=== PATIENT | male | born 1950 | race Two or more races ===

== ENCOUNTER → 2024-08-01 | Outpatient (CLI) | payer MEDICARE, SELFPAY ==
[2024-08-01 11:45] LABS: Glucose Estimated Average 243 mg/dL (80-131); Hemoglobin A1C 10.1 % Hgb (4.8-6.0)
[2024-08-01 11:50] LABS: Alanine Aminotransferase 23 U/L (10-49); Albumin, Serum 4.7 gm/dL (3.4-4.8); Albumin/Globulin Ratio 2.1 (1.2-2.2); Alkaline Phosphatase 91 U/L (46-116); Anion Gap 9 (7-16); Aspartate Amino Transferase 20 U/L (0-34); BUN/Creatinine Ratio 13 Ratio (12-20); Bilirubin,Total 0.6 mg/dL (0.3-1.2); Blood Urea Nitrogen 12 mg/dL (9-23); Calcium 9.6 mg/dL (8.3-10.6); Calcium (Corrected) 9.6 mg/dL (8.5-10.1); Carbon Dioxide 25.1 mMol/L (20.0-31.0); Chloride 101 mMol/L (98-107); Creatinine (Component) 0.9 mg/dL (0.6-1.3); Globulin 2.2 gm/dL (2.3-3.5); Glucose 122 mg/dL (74-106); Osmolality,Calculated 270 (275-295); Potassium 3.8 mMol/L (3.4-5.1); Sodium 135 mMol/L (136-145); Total Protein 6.9 gm/dL (5.7-8.2); eGFR > 60 See Note
== END | disposition home or self-care (01) ==
PROVIDERS: PCP Family Medicine; Referring Provider Family Medicine; Visit Provider Family Medicine
DX: E11.65 Type 2 diabetes mellitus with hyperglycemia (principal)
CPT/HCPCS: 36415; 80053; 83036

== ENCOUNTER → 2024-11-14 | Outpatient (CLI) | payer MEDICARE, SELFPAY ==
--- NOTE | 2024-11-14 | XR_ITS ---
Examination: Left knee 4 views TECHNIQUE: AP oblique lateral axial left knee 4 views Exam date and time: November 14, 2024 1257 hours INDICATIONS: Left knee pain 15 years. FINDINGS: Advanced narrowing medial joint space Moderate to advanced osteoarthritis patellofemoral joint No fracture No patellar dislocation IMPRESSION: Moderate to advanced tricompartment osteoarthritis
[2024-11-14 13:50] LABS: Basophils # (Auto) 0.1 Thou/mm3 (0.0-0.2); Basophils % (Auto) 2 % (0-2.5); Eosinophils # (Auto) 0.2 Thou/mm3 (0.0-0.5); Eosinophils % (Auto) 2 % (0-10); Hematocrit 42.1 % (41.0-53.0); Hemoglobin 14.7 g/dL (13.5-16.0); Immature Granulocytes % (Auto) 0 % (0-0); Immature Granulocytes Auto 0.02 Thou/mm3 (0.00-0.00); Lymphocytes % (Auto) 29 % (10-50); Mean Corpuscular HGB Conc 34.9 g/dl (31.0-37.0); Mean Corpuscular Hemoglobin 29.8 pg (25.0-35.0); Mean Corpuscular Volume 85 fL (80-100); Monocytes # (Auto) 0.6 Thou/mm3 (0.0-0.8); Monocytes % (Auto) 8 % (0-12); Neutrophils % (Auto) 58 % (37-80); Nucleated Red Blood Cell % 0 /100 WBC (0); Platelet Count 235 Thou/mm3 (140-440); RDW Standard Deviation 38.4 fL (35.1-43.9); Red Blood Count 4.93 Miln/mm3 (4.50-5.90); White Blood Count 6.9 Thou/mm3 (3.8-10.6)
[2024-11-14 14:14] LABS: Alanine Aminotransferase 19 U/L (10-49); Albumin, Serum 3.9 gm/dL (3.4-4.8); Albumin/Globulin Ratio 1.6 (1.2-2.2); Alkaline Phosphatase 99 U/L (46-116); Anion Gap 10 (7-16); Aspartate Amino Transferase 14 U/L (0-34); BUN/Creatinine Ratio 16 Ratio (12-20); Bilirubin,Total 0.6 mg/dL (0.3-1.2); Blood Urea Nitrogen 14 mg/dL (9-23); Calcium 8.9 mg/dL (8.3-10.6); Cardiac Risk Estimate 5.6 RATIO (4.0-6.7); Chloride 102 mMol/L (98-107); Cholesterol 239 mg/dL (132-200); Creatinine (Component) 0.9 mg/dL (0.6-1.3); Globulin 2.4 gm/dL (2.3-3.5); Glucose 309 mg/dL (74-106); HDL Cholesterol 43 mg/dL (40-60); LDL Cholesterol,Calculated 136 mg/dL (0-130); Osmolality,Calculated 282 (275-295); Potassium 3.9 mMol/L (3.4-5.1); Sodium 135 mMol/L (136-145); Total Protein 6.3 gm/dL (5.7-8.2); Triglycerides 301 mg/dL (30-150); eGFR > 60 See Note
[2024-11-14 14:37] LABS: Glucose Estimated Average 355 mg/dL (80-131)
[2024-11-14 15:01] LABS: Creatinine MALB Rnd Ur 124 mg/dL (30-125); Microalbumin Creat Ratio 45 mg/gCrea (<30); Microalbumin, Random Urine 56 mg/L (0-300)
== END | disposition home or self-care (01) ==
PROVIDERS: PCP Internal Medicine; Referring Provider Internal Medicine; Visit Provider Internal Medicine
DX: M17.12 Unilateral primary osteoarthritis, left knee (principal); E11.65 Type 2 diabetes mellitus with hyperglycemia; I10 Essential (primary) hypertension
CPT/HCPCS: 36415; 73564; 80053; 80061; 82043; 82570; 83036; 84443; 85025

== ENCOUNTER → 2025-01-27 | Outpatient (CLI) | payer MEDICARE, SELFPAY | END | disposition home or self-care (01) | LOC: COPL 14:06 | PROVIDERS: PCP Internal Medicine; Referring Provider Internal Medicine; Visit Provider Internal Medicine | DX: N39.0 Urinary tract infection, site not specified (principal) | CPT/HCPCS: 87077; 87086; 87186 ==

== ENCOUNTER → 2025-02-06 | Outpatient (CLI) | payer MEDICARE, SELFPAY ==
[2025-02-06 15:56] LABS: Glucose Estimated Average 192 mg/dL (80-131); Hemoglobin A1C 8.3 % Hgb (4.8-6.0)
[2025-02-06 15:57] LABS: Alanine Aminotransferase 22 U/L (10-49); Albumin, Serum 4.5 gm/dL (3.4-4.8); Albumin/Globulin Ratio 1.8 (1.2-2.2); Alkaline Phosphatase 95 U/L (46-116); Anion Gap 11 (7-16); Aspartate Amino Transferase 24 U/L (0-34); BUN/Creatinine Ratio 13 Ratio (12-20); Bilirubin,Total 0.7 mg/dL (0.3-1.2); Blood Urea Nitrogen 12 mg/dL (9-23); Calcium 9.1 mg/dL (8.3-10.6); Calcium (Corrected) 9.1 mg/dL (8.5-10.1); Carbon Dioxide 23.5 mMol/L (20.0-31.0); Cardiac Risk Estimate 3.6 RATIO (4.0-6.7); Chloride 104 mMol/L (98-107); Cholesterol 174 mg/dL (132-200); Creatinine (Component) 0.9 mg/dL (0.6-1.3); Globulin 2.5 gm/dL (2.3-3.5); Glucose 120 mg/dL (74-106); HDL Cholesterol 49 mg/dL (40-60); LDL Cholesterol,Calculated 95 mg/dL (0-130); Osmolality,Calculated 276 (275-295); Potassium 4.2 mMol/L (3.4-5.1); Sodium 138 mMol/L (136-145); Triglycerides 151 mg/dL (30-150); eGFR > 60 See Note
[2025-02-06 16:01] LABS: Creatinine MALB Rnd Ur 28 mg/dL (30-125); Microalbumin Creat Ratio 54 mg/gCrea (<30); Microalbumin, Random Urine 15 mg/L (0-300)
[2025-02-06 16:28] LABS: Basophils # (Auto) 0.1 Thou/mm3 (0.0-0.2); Basophils % (Auto) 2 % (0-2.5); Eosinophils # (Auto) 0.2 Thou/mm3 (0.0-0.5); Eosinophils % (Auto) 2 % (0-10); Hematocrit 44.7 % (41.0-53.0); Hemoglobin 15.8 g/dL (13.5-16.0); Immature Granulocytes % (Auto) 0 % (0-0); Immature Granulocytes Auto 0.02 Thou/mm3 (0.00-0.00); Lymphocytes # (Auto) 2.5 Thou/mm3 (1.0-4.8); Lymphocytes % (Auto) 34 % (10-50); Mean Corpuscular HGB Conc 35.3 g/dl (31.0-37.0); Mean Corpuscular Hemoglobin 30.3 pg (25.0-35.0); Mean Corpuscular Volume 86 fL (80-100); Monocytes # (Auto) 0.7 Thou/mm3 (0.0-0.8); Monocytes % (Auto) 9 % (0-12); Neutrophils % (Auto) 53 % (37-80); Nucleated Red Blood Cell % 0 /100 WBC (0); Platelet Count 270 Thou/mm3 (140-440); RDW Standard Deviation 40.4 fL (35.1-43.9); Red Blood Count 5.22 Miln/mm3 (4.50-5.90); White Blood Count 7.5 Thou/mm3 (3.8-10.6)
== END | disposition home or self-care (01) ==
LOC: COPL 14:16
PROVIDERS: PCP Internal Medicine; Referring Provider Internal Medicine; Visit Provider Internal Medicine
DX: E11.65 Type 2 diabetes mellitus with hyperglycemia (principal); E78.00 Pure hypercholesterolemia, unspecified; I10 Essential (primary) hypertension
CPT/HCPCS: 36415; 80053; 80061; 82043; 82570; 83036; 85025

== ENCOUNTER → 2025-02-10 | Outpatient (CLI) | payer MEDICARE, SELFPAY ==
[2025-02-10 16:57] LABS: PSA Medicare Annual Scrn 2.69 ng/mL (0-4.00)
== END | disposition home or self-care (01) ==
PROVIDERS: PCP Internal Medicine; Referring Provider Internal Medicine; Visit Provider Internal Medicine
DX: Z00.01 Encounter for general adult medical examination with abnormal findings (principal); E11.65 Type 2 diabetes mellitus with hyperglycemia; E78.00 Pure hypercholesterolemia, unspecified; I10 Essential (primary) hypertension; G62.9 Polyneuropathy, unspecified; M19.90 Unspecified osteoarthritis, unspecified site
CPT/HCPCS: 36415; 84153; G0103

== ENCOUNTER 2025-03-17 13:48 | Outpatient (AMB) | payer MEDICARE, SELFPAY ==
--- NOTE | 2025-03-17 14:25 | PD.ORTHCLVIS ---
Vital signs 03/17/25 14:32 Height 1.7 m Height Method Stated Weight 117.14 kg Weight Measurement Method Standing Scale BMI 40.4 BP 131/75 H Blood Pressure Source Automatic Cuff Blood Pressure Location Left Upper Arm Position Sitting Respiration 18 Pulse 91 Pulse Source Monitor Temp 98.1 F Temp Source Temporal Artery Scan Pulse Oximetry (%) 94 L Oxygen Delivery Method Room Air Med/Allergies Allergies & Medications Allergies Penicillins Adverse Reaction (Severe, Verified 03/17/25 14:33) Vomiting Medication Reconciliation cimetidine 400 mg tablet 400 mg PO QDAY ##60 04/25/15 [History Confirmed 03/17/25] diclofenac sodium 50 mg tablet,delayed release 100 mg PO TIDWM ##0 07/01/17 [History Confirmed 03/17/25] gabapentin 300 mg capsule 300 mg PO BID #0 caps 07/01/17 [History Confirmed 03/17/25] insulin detemir U-100 100 unit/mL subcutaneous solution (Levemir U-100 Insulin) 60 unit subcut QPM #0 vials 07/01/17 [History Confirmed 03/17/25] rosuvastatin 10 mg tablet (Crestor) 10 mg PO HS #0 tabs 08/31/17 [History Confirmed 03/17/25] coenzyme Q10 100 mg capsule (CoQ-10) 300 mg PO DAILY ##0 09/01/17 [History Confirmed 03/17/25] glyburide 5 mg-metformin 500 mg tablet 1 tab PO DAILY 02/23/19 [History Confirmed 03/17/25] losartan 50 mg tablet 50 mg PO QDAY 02/23/19 [History Confirmed 03/17/25] magnesium 200 mg tablet 400 mg PO QDAY 02/23/19 [History Confirmed 03/17/25] meloxicam 15 mg tablet 15 mg PO QDAY 02/23/19 [History Confirmed 03/17/25] potassium gluconate 595 mg (99 mg) tablet 99 mg PO QDAY 02/23/19 [History Confirmed 03/17/25] Exam Exam Patient is in no acute distress and is cooperative with the examination today. Breathing is nonlabored. Patient has a normal mood and affect. Bilateral extremities were evaluated and demonstrates sensation intact to light touch. Palpable pedal pulses are present. No significant edema is present. Bilateral hips were examined. The patient has no pain with log roll of the hips. Internal rotation to 30 degrees and external rotation to 30 degrees is painless. Negative FADIR. Right knee was examined today. The right knee is in reasonable alignment. Range of motion from 0-120 degrees. Knee is stable to varus and valgus as well as AP translation with <5mm. Patient has a negative McMurrays. There is no pain with patellofemoral compression and no crepitus noted. The knee is nontender to palpation. Left knee was examined today. The left knee is in varus alignment. Range of motion from 0-115 degrees. Knee is stable to varus and valgus as well as AP translation with <5mm. Patient has a negative McMurrays. There is no pain with patellofemoral compression and no crepitus noted. The knee is tender to palpation medially. Xrays demonstrate significant joint space narrowing medially Assessment and Plan Problem List (1) Arthritis of knee: Status: Acute Plan: Patient is a pleasant 73-year-old male with left knee pain and left knee arthritis. We discussed different treatment options. The patient would like to proceed with surgery if he has [id number] which he has been told by 5 of the surgeons that he has [id number] arthritis. I will get weightbearing x-rays and we will go from there. We discussed total knee replacement in detail. Advanced Care Planning Discussion Advance care planning discussed with:: patient Office Procedures GNS Level of Care Nursing/Assessment Patient Status: Initial/New Patient Nursing Assessment/Reassesment: Medication Reconciliation, Update PMH in EMR and Vital Signs Coordination of Care: Complex Care and Chronic Disease 1-5, Education Complex Pt/Fam, Consent,records obtained, informed consent, 1 Ins Authorization, Lab and Imaging orders, Results/Orders obtained and Staff clarify orders New Patient Charge New Patient Point Assignment: 1124 New Patient Point Charge: DENTIST PR[facility] PRACTICE Level 4 (5732-1308) MA Intake Visit Data Collection New Patient or Established: New Patient (never been to [facility]) Reason for Visit:: LEFT KNEE PAIN Seen by Clinical Staff ONLY (RN/MA): No PCP or OBGYN visit in last 3 months: Yes Hx Now: No Do You Feel Safe at Home: Yes Authorities Contacted: N/A Questionairres Past Medical History Past Medical History Have you ever been diagnosed with any of the following: Neurological Problems Seizures: No Cardiology Problems Hypercholesterolemia: Yes Congestive Heart Failure: No Hypertension: Yes Respiratory Problems Chronic Obstructive Pulmonary Disease (COPD): No Smoking: Yes (5 CIGARS A MONTH) Stomache/Intestinal Problems Gastroesophageal Reflux Disease: Yes Genital/Urinary Problems Renal Disease: No Head,Eye,Nose,Throat Problems Cataracts: Yes Endocrine Problems Diabetes Mellitus Type 1: No Diabetes Mellitus Type 2: Yes Other Problems Blood Transfusions: No Blood Transfusion Reaction: No Anesthesia Reactions: No Organ Transplant: Yes Subjective Visit Visit for: new patient and knee Immunization / Flu Flu Vaccine in the Last 12 Months: Yes Flu Vaccine Exclusion Criteria: No Exclusion Criteria History of Present Illness Chief complaint: left knee pain Date of injury / onset of symptoms: 3 YEARS Date of 1st surgery (if applicable): 2019 R TKA Patient is a pleasant 71-year-old male with a left knee arthritis. He had a right total knee replacement done at [place] 5 years ago. He has had injections in the past as well as Advil. He uses a walker because of the pain. He reports the pain is starting to affect his quality life and happiness Personal History Occupation: RETIRED Pain Pain level (0-10): 9 Pain duration: ALL DAY Pain location: anterior Pain quality: aching and other (specify) (SWELLING) Pain timing: increases with activity Ambulatory data Ambulatory device: walker Treatments Improvement with previous injections: No Improvement with PT: No Improvement with NSAIDS: no Review of Systems Review of Systems: All systems negative unless otherwise noted in HPI.
[2025-03-17 14:32] VITALS: BP 131/75; PULSE 91; RESP 18; TEMP 36.7; O2SAT 94; BMI 40.4
--- NOTE | 2025-03-17 14:39 | XR_ITS ---
Examination: Bilateral knees 2 views Right lateral knee left lateral knee 2 views Bilateral axial knees single view TECHNIQUE: Bilateral AP knees standing single view, bilateral PA knees flexion single view Standing right lateral knee left lateral knee 2 views Bilateral axial knees single view Date and time: March 17, 2025 1456 hours INDICATIONS: Bilateral knee pain beginning 3 months ago FINDINGS: Total right knee arthroplasty. Satisfactory alignment. No loosening of the prosthetic components Advanced medial joint space left knee Significant osteoarthritis lateral and patellofemoral joints left knee IMPRESSION: Advanced left knee tricompartment arthritis
== END 2025-03-17 14:44 | disposition home or self-care (01) ==
LOC: HODSRG 13:48
PROVIDERS: PCP Internal Medicine; Referring Provider Internal Medicine; Supervising Provider Orthopaedic Surgery Adult Reconstructive Orthopaedic Surgery; Visit Provider Orthopaedic Surgery Adult Reconstructive Orthopaedic Surgery
DX: M17.12 Unilateral primary osteoarthritis, left knee (principal); I10 Essential (primary) hypertension; E78.00 Pure hypercholesterolemia, unspecified; K21.9 Gastro-esophageal reflux disease without esophagitis; E11.9 Type 2 diabetes mellitus without complications
CPT/HCPCS: 73564; 99204; G0463

== ENCOUNTER 2025-03-23 13:22 | Outpatient (AMB) | payer MEDICARE, SELFPAY ==
[2025-03-23 13:55] VITALS: BP 165/102; PULSE 94; RESP 19; TEMP 36.4; O2SAT 97; BMI 30.3
--- NOTE | 2025-03-23 13:55 | ORTHONT_ITS ---
Vital signs 03/23/25 13:55 Height 1.7 m Height Method Measured Weight 87.657 kg Weight Measurement Method Standing Scale BMI 30.3 BP 165/102 H Blood Pressure Source Automatic Cuff Blood Pressure Location Left Upper Arm Position Sitting Respiration 19 Pulse 94 Pulse Source Monitor Temp 97.6 F Temp Source Temporal Artery Scan Pulse Oximetry (%) 97 Oxygen Delivery Method Room Air Med/Allergies Allergies & Medications Allergies Penicillins Adverse Reaction (Severe, Verified 03/23/25 13:56) Vomiting Medication Reconciliation cimetidine 400 mg tablet 400 mg PO QDAY ##60 04/25/15 [History Confirmed 03/23/25] diclofenac sodium 50 mg tablet,delayed release 100 mg PO TIDWM ##0 07/01/17 [History Confirmed 03/23/25] gabapentin 300 mg capsule 300 mg PO BID #0 caps 07/01/17 [History Confirmed 03/23/25] insulin detemir U-100 100 unit/mL subcutaneous solution (Levemir U-100 Insulin) 60 unit subcut QPM #0 vials 07/01/17 [History Confirmed 03/23/25] rosuvastatin 10 mg tablet (Crestor) 10 mg PO HS #0 tabs 08/31/17 [History Confirmed 03/23/25] coenzyme Q10 100 mg capsule (CoQ-10) 300 mg PO DAILY ##0 09/01/17 [History Confirmed 03/23/25] glyburide 5 mg-metformin 500 mg tablet 1 tab PO DAILY 02/23/19 [History Confirmed 03/23/25] losartan 50 mg tablet 50 mg PO QDAY 02/23/19 [History Confirmed 03/23/25] magnesium 200 mg tablet 400 mg PO QDAY 02/23/19 [History Confirmed 03/23/25] meloxicam 15 mg tablet 15 mg PO QDAY 02/23/19 [History Confirmed 03/23/25] potassium gluconate 595 mg (99 mg) tablet 99 mg PO QDAY 02/23/19 [History Confirmed 03/23/25] Exam Exam Patient is in no acute distress and is cooperative with the examination today. Breathing is nonlabored. Patient has a normal mood and affect. Bilateral extremities were evaluated and demonstrates sensation intact to light touch. Palpable pedal pulses are present. No significant edema is present. Bilateral hips were examined. The patient has no pain with log roll of the hips. Internal rotation to 30 degrees and external rotation to 30 degrees is painless. Negative FADIR. Right knee was examined today. The right knee is in reasonable alignment. Range of motion from 0-120 degrees. Knee is stable to varus and valgus as well as AP translation with <5mm. Patient has a negative McMurrays. There is no pain with patellofemoral compression and no crepitus noted. The knee is nontender to palpation. Left knee was examined today. The left knee is in varus alignment. Range of motion from 0-115 degrees. Knee is stable to varus and valgus as well as AP translation with <5mm. Patient has a negative McMurrays. There is no pain with patellofemoral compression and no crepitus noted. The knee is tender to palpation medially. Xrays demonstrate significant joint space narrowing medially. There is complete obliteration of the medial joint space Assessment and Plan Problem List (1) Arthritis of knee: Status: Acute Plan: Patient is a pleasant 73-year-old male with left knee pain and left knee arthritis. We discussed different treatment options. The patient would like to proceed with surgery if he has [id number] which he has been told by 5 of the surgeons that he has [id number] arthritis. He has failed conservative treatment including anti-inflammatories and multiple injections. The nature and purpose of the total knee replacement, alternative method(s) of treatment, the material risks involved, and the possibility of complications were fully explained to the patient. The patient does NOT have any of the following contraindications to TKA: - Active infection of the knee joint, OR - Active systemic bacteremia, OR - Active skin infection or open wound at surgical site, OR - Neuropathic arthritis, OR - Severe, rapidly progressive neurological disease, OR - Severe medical condition that makes risks of surgery outweigh the potential benefit The patient was told the most common risks and complications associated with a total knee replacement include, but are not limited to: blood clots in the leg, fatal pulmonary embolism, dislocation of the prosthesis, intraoperative and postoperative fractures of the femur or tibia, infection, failure of the prosthesis or grafting materials, complications from anesthesia, reactions to blood transfusions, postoperative leg length inequality, instability of the knee replacement, nerve damage or injury, vascular injury, delayed wound healing, infection, other injury or even . In addition, there are risks associated with anesthesia given during this operation. Also, the patient was told that after undergoing a total knee replacement there may still be persistent pain or disability. The patient was informed that the success of this operation in part depends upon the mechanical devices which are going to be implanted and that these devices can fail or malfunction, and may need to be repaired or replaced and there are no guarantees as to the longevity of this device or its parts and that it or its parts could fail prematurely. The patient was also notified that during the course of surgery, there may be a need to use bone graft from donors, and that any bone graft used will be carefully screened for communicable diseases, including AIDS, hepatitis, Sarthak-Creutzfeldt, or other diseases, but despite the screening procedures, there is a small chance that they could contract one of these diseases. Finally, the patient was asked to follow completely and fully with all advice and recommended treatments, and that recovery and ultimate outcome are affected by their compliance with recommended treatment. We discussed the risks, benefits and treatment alternatives, and the patient is interested in proceeding with surgery. We will try to set this up as expeditiously as possible. Advanced Care Planning Discussion Advance care planning discussed with:: patient Office Procedures GNS Level of Care Nursing/Assessment Patient Status: Established Patient Nursing Assessment/Reassesment: Medication Reconciliation, Update PMH in EMR and Vital Signs Coordination of Care: Complex Care and Chronic Disease 1-5, Education Complex Pt/Fam, Consent,records obtained, informed consent, Results/Orders obtained and Staff clarify orders Special Needs: Language special needs Established Patient Charge Established Patient Point Assignment: 95 Established Patient Point Charge: EP Level 3 (80-115) MA Intake Visit Data Collection New Patient or Established: Established Patient (seen at [facility] within 3 years) Reason for Visit:: XRAY HIP Seen by Clinical Staff ONLY (RN/MA): No Enrolled Nurse Required: Yes PCP or OBGYN visit in last 3 months: Yes Hx Now: No Do You Feel Safe at Home: Yes Authorities Contacted: N/A Questionairres Past Medical History Past Medical History Have you ever been diagnosed with any of the following: Neurological Problems Seizures: No Cardiology Problems Hypercholesterolemia: Yes Congestive Heart Failure: No Hypertension: Yes Respiratory Problems Chronic Obstructive Pulmonary Disease (COPD): No Smoking: Yes (5 CIGARS A MONTH) Stomache/Intestinal Problems Gastroesophageal Reflux Disease: Yes Genital/Urinary Problems Renal Disease: No Head,Eye,Nose,Throat Problems Cataracts: Yes Endocrine Problems Diabetes Mellitus Type 1: No Diabetes Mellitus Type 2: Yes Other Problems Blood Transfusions: No Blood Transfusion Reaction: No Anesthesia Reactions: No Organ Transplant: Yes Subjective Visit Visit for: follow up visit and hip Immunization / Flu Flu Vaccine in the Last 12 Months: No Flu Vaccine Exclusion Criteria: No Exclusion Criteria History of Present Illness Chief complaint: XRAY HIP Date of injury / onset of symptoms: 3 YEARS Date of 1st surgery (if applicable): 2019 R TKA Patient is a pleasant 71-year-old male with a left knee arthritis. He had a right total knee replacement done at [place] 5 years ago. He has had injections in the past as well as Advil. He uses a walker because of the pain. He reports the pain is starting to affect his quality life and happiness Personal History Occupation: RETIRED Red flag PMH: none BMI Counceling provided: Yes Pain Pain level (0-10): 8 Pain duration: ALL DAY Pain location: groin, anterior and posterior Pain quality: sharp, dull and aching Pain timing: night, increases with activity and stairs Ambulatory data Ambulatory device: none Treatments Improvement with previous injections: No Improvement with PT: No Improvement with NSAIDS: no Review of Systems Review of Systems: All systems negative unless otherwise noted in HPI.
== END 2025-03-23 14:09 | disposition home or self-care (01) ==
LOC: HODSRG 13:22
PROVIDERS: PCP Internal Medicine; Referring Provider Internal Medicine; Supervising Provider Orthopaedic Surgery Adult Reconstructive Orthopaedic Surgery; Visit Provider Orthopaedic Surgery Adult Reconstructive Orthopaedic Surgery
DX: M17.12 Unilateral primary osteoarthritis, left knee (principal); M25.562 Pain in left knee; I10 Essential (primary) hypertension; E78.00 Pure hypercholesterolemia, unspecified; K21.9 Gastro-esophageal reflux disease without esophagitis; E11.9 Type 2 diabetes mellitus without complications
CPT/HCPCS: 99213; G0463

== ENCOUNTER → 2025-04-12 | Outpatient (CLI) | payer MEDICARE, SELFPAY ==
--- NOTE | 2025-04-12 12:00 | XR_ITS ---
Examination: CT left lower extremity, without contrast. 2-D sagittal reconstructions. 2-D coronal reconstructions. 3-D reconstructions. Date and time of exam:April 12, 2025 1221 hours INDICATIONS: Diagnosis unilateral left knee primary osteoarthritis for years, left knee pain for years CTDI: vol (mGy):13.4 DLP: (mGycm):1086 Technique: Multiple 1.25 mm axial sections of the left lower extremity without intravenous contrast have been obtained. 2-D sagittal and coronal reconstructions have been obtained. 3-D reconstructions have been obtained. Low dose protocols were performed. One or more of the following dose reduction techniques were used; automated exposure control, adjustment of the mA and/or KV according to patient size, use of iterative reconstruction technique. Findings: Significant osteopenia Moderate narrowing left hip joint No left hip fracture or dislocation No avascular necrosis Left knee advanced tricompartment osteoarthritis Severe narrowing medial joint space with 7 mm osteochondral defect in the medial femoral condyle No acute fracture No patellar dislocation IMPRESSION: Advanced left knee tricompartment osteoarthritis
== END | disposition home or self-care (01) ==
LOC: CCTX 11:56
PROVIDERS: PCP Internal Medicine; Referring Provider Orthopaedic Surgery Adult Reconstructive Orthopaedic Surgery; Visit Provider Orthopaedic Surgery Adult Reconstructive Orthopaedic Surgery
DX: M17.12 Unilateral primary osteoarthritis, left knee (principal)
CPT/HCPCS: 73700

== ENCOUNTER → 2025-05-17 | Outpatient (CLI) | payer MEDICARE, SELFPAY ==
[2025-05-17 16:49] LABS: Basophils # (Auto) 0.1 Thou/mm3 (0.0-0.2); Basophils % (Auto) 1 % (0-2.5); Eosinophils # (Auto) 0.4 Thou/mm3 (0.0-0.5); Eosinophils % (Auto) 4 % (0-10); Hematocrit 43.8 % (41.0-53.0); Hemoglobin 15.1 g/dL (13.5-16.0); Immature Granulocytes Auto 0.02 Thou/mm3 (0.00-0.00); Lymphocytes # (Auto) 2.5 Thou/mm3 (1.0-4.8); Lymphocytes % (Auto) 28 % (10-50); Mean Corpuscular HGB Conc 34.5 g/dl (31.0-37.0); Mean Corpuscular Hemoglobin 30.3 pg (25.0-35.0); Mean Corpuscular Volume 88 fL (80-100); Monocytes # (Auto) 0.7 Thou/mm3 (0.0-0.8); Monocytes % (Auto) 8 % (0-12); Neutrophils # (Auto) 5.2 Thou/mm3 (1.8-7.7); Neutrophils % (Auto) 58 % (37-80); Nucleated Red Blood Cell # 0.00 Thou/mm3 (0.00-0.00); Nucleated Red Blood Cell % 0 /100 WBC (0); Platelet Count 243 Thou/mm3 (140-440); RDW Standard Deviation 41.3 fL (35.1-43.9); Red Blood Count 4.98 Miln/mm3 (4.50-5.90); White Blood Count 8.9 Thou/mm3 (3.8-10.6)
[2025-05-17 16:57] LABS: Glucose Estimated Average 200 mg/dL (80-131); Hemoglobin A1C 8.6 % Hgb (4.8-6.0)
[2025-05-17 17:01] LABS: Alanine Aminotransferase 39 U/L (10-49); Albumin, Serum 4.2 gm/dL (3.4-4.8); Albumin/Globulin Ratio 1.8 (1.2-2.2); Alkaline Phosphatase 92 U/L (46-116); Anion Gap 11 (7-16); Aspartate Amino Transferase 31 U/L (0-34); BUN/Creatinine Ratio 10 Ratio (12-20); Bilirubin,Total 0.5 mg/dL (0.3-1.2); Blood Urea Nitrogen 10 mg/dL (9-23); Calcium 8.7 mg/dL (8.3-10.6); Calcium (Corrected) 8.7 mg/dL (8.5-10.1); Carbon Dioxide 22.7 mMol/L (20.0-31.0); Chloride 106 mMol/L (98-107); Creatinine (Component) 1.0 mg/dL (0.6-1.3); Globulin 2.3 gm/dL (2.3-3.5); Glucose 280 mg/dL (74-106); Osmolality,Calculated 288 (275-295); Potassium 3.9 mMol/L (3.4-5.1); Sodium 140 mMol/L (136-145); Total Protein 6.5 gm/dL (5.7-8.2); eGFR > 60 See Note
[2025-05-17 17:11] LABS: INR 1.0 (0.9-1.3); Partial Thromboplastin Time 28.7 Seconds (22.0-36.0); Prothrombin Time 10.9 Seconds (9.0-12.2)
== END | disposition home or self-care (01) ==
LOC: COPL 14:37
PROVIDERS: PCP Nurse Practitioner Family; Referring Provider Nurse Practitioner Family; Visit Provider Nurse Practitioner Family
DX: Z01.818 Encounter for other preprocedural examination (principal); I10 Essential (primary) hypertension; E11.65 Type 2 diabetes mellitus with hyperglycemia
CPT/HCPCS: 36415; 80053; 83036; 85025; 85610; 85730

== ENCOUNTER 2025-05-24 13:44 | Outpatient (AMB) | payer MEDICARE, SELFPAY ==
[2025-05-24 13:50] VITALS: BP 139/69; PULSE 80; RESP 18; TEMP 36.8; O2SAT 96; BMI 41.0
--- NOTE | 2025-05-24 13:50 | PD.ORTHCLVIS ---
Vital signs 05/24/25 13:50 Height 1.7 m Height Method Measured Weight 118.501 kg Weight Measurement Method Standing Scale BMI 41.0 BP 139/69 H Blood Pressure Source Automatic Cuff Blood Pressure Location Left Upper Arm Position Sitting Respiration 18 Pulse 80 Pulse Source Monitor Temp 98.3 F Temp Source Temporal Artery Scan Pulse Oximetry (%) 96 Oxygen Delivery Method Room Air Med/Allergies Allergies & Medications Allergies Penicillins Adverse Reaction (Severe, Verified 05/24/25 13:51) Vomiting Medication Reconciliation cimetidine 400 mg tablet 400 mg PO QDAY ##60 04/25/15 [History Confirmed 05/24/25] diclofenac sodium 50 mg tablet,delayed release 100 mg PO TIDWM ##0 07/01/17 [History Confirmed 05/24/25] gabapentin 300 mg capsule 300 mg PO BID #0 caps 07/01/17 [History Confirmed 05/24/25] insulin detemir U-100 100 unit/mL subcutaneous solution (Levemir U-100 Insulin) 60 unit subcut QPM #0 vials 07/01/17 [History Confirmed 05/24/25] rosuvastatin 10 mg tablet (Crestor) 10 mg PO HS #0 tabs 08/31/17 [History Confirmed 05/24/25] coenzyme Q10 100 mg capsule (CoQ-10) 300 mg PO DAILY ##0 09/01/17 [History Confirmed 05/24/25] glyburide 5 mg-metformin 500 mg tablet 1 tab PO DAILY 02/23/19 [History Confirmed 05/24/25] losartan 50 mg tablet 50 mg PO QDAY 02/23/19 [History Confirmed 05/24/25] magnesium 200 mg tablet 400 mg PO QDAY 02/23/19 [History Confirmed 05/24/25] meloxicam 15 mg tablet 15 mg PO QDAY 02/23/19 [History Confirmed 05/24/25] potassium gluconate 595 mg (99 mg) tablet 99 mg PO QDAY 02/23/19 [History Confirmed 05/24/25] Exam Exam Patient is in no acute distress and is cooperative with the examination today. Breathing is nonlabored. Patient has a normal mood and affect. Bilateral extremities were evaluated and demonstrates sensation intact to light touch. Palpable pedal pulses are present. No significant edema is present. Bilateral hips were examined. The patient has no pain with log roll of the hips. Internal rotation to 30 degrees and external rotation to 30 degrees is painless. Negative FADIR. Right knee was examined today. The right knee is in reasonable alignment. Range of motion from 0-120 degrees. Knee is stable to varus and valgus as well as AP translation with <5mm. Patient has a negative McMurrays. There is no pain with patellofemoral compression and no crepitus noted. The knee is nontender to palpation. Left knee was examined today. The left knee is in varus alignment. Range of motion from 0-115 degrees. Knee is stable to varus and valgus as well as AP translation with <5mm. Patient has a negative McMurrays. There is no pain with patellofemoral compression and no crepitus noted. The knee is tender to palpation medially. Xrays demonstrate significant joint space narrowing medially. There is complete obliteration of the medial joint space Assessment and Plan Problem List (1) Arthritis of knee: Status: Acute Plan: Patient is a pleasant 73-year-old male with left knee pain and left knee arthritis. We discussed different treatment options. The patient would like to proceed with surgery if he has [id number] which he has been told by 5 of the surgeons that he has [id number] arthritis. He has failed conservative treatment including anti-inflammatories and multiple injections. In addition, he has bilateral leg numbness and tingling that starts around the buttocks and goes down both legs. He almost for sure of spinal stenosis. I will order an MRI The nature and purpose of the total knee replacement, alternative method(s) of treatment, the material risks involved, and the possibility of complications were fully explained to the patient. The patient does NOT have any of the following contraindications to TKA: - Active infection of the knee joint, OR - Active systemic bacteremia, OR - Active skin infection or open wound at surgical site, OR - Neuropathic arthritis, OR - Severe, rapidly progressive neurological disease, OR - Severe medical condition that makes risks of surgery outweigh the potential benefit The patient was told the most common risks and complications associated with a total knee replacement include, but are not limited to: blood clots in the leg, fatal pulmonary embolism, dislocation of the prosthesis, intraoperative and postoperative fractures of the femur or tibia, infection, failure of the prosthesis or grafting materials, complications from anesthesia, reactions to blood transfusions, postoperative leg length inequality, instability of the knee replacement, nerve damage or injury, vascular injury, delayed wound healing, infection, other injury or even . In addition, there are risks associated with anesthesia given during this operation. Also, the patient was told that after undergoing a total knee replacement there may still be persistent pain or disability. The patient was informed that the success of this operation in part depends upon the mechanical devices which are going to be implanted and that these devices can fail or malfunction, and may need to be repaired or replaced and there are no guarantees as to the longevity of this device or its parts and that it or its parts could fail prematurely. The patient was also notified that during the course of surgery, there may be a need to use bone graft from donors, and that any bone graft used will be carefully screened for communicable diseases, including AIDS, hepatitis, Sarthak-Creutzfeldt, or other diseases, but despite the screening procedures, there is a small chance that they could contract one of these diseases. Finally, the patient was asked to follow completely and fully with all advice and recommended treatments, and that recovery and ultimate outcome are affected by their compliance with recommended treatment. We discussed the risks, benefits and treatment alternatives, and the patient is interested in proceeding with surgery. We will try to set this up as expeditiously as possible. Advanced Care Planning Discussion Advance care planning discussed with:: patient Office Procedures GNS Level of Care Nursing/Assessment Patient Status: Established Patient Nursing Assessment/Reassesment: Medication Reconciliation, Update PMH in EMR and Vital Signs Coordination of Care: Complex Care and Chronic Disease 1-5, Education Complex Pt/Fam, Consent,records obtained, informed consent, Results/Orders obtained and Staff clarify orders Established Patient Charge Established Patient Point Assignment: 95 Established Patient Point Charge: Level 3 (80-115) MA Intake Visit Data Collection New Patient or Established: Established Patient (seen at [facility] within 3 years) Reason for Visit:: LEFT KNEE PAIN Seen by Clinical Staff ONLY (RN/MA): No Electrical Plumbing Supervisor Required: Yes PCP or OBGYN visit in last 3 months: Yes Hx Now: No Do You Feel Safe at Home: Yes Authorities Contacted: N/A Questionairres Past Medical History Past Medical History Have you ever been diagnosed with any of the following: Neurological Problems Seizures: No Cardiology Problems Hypercholesterolemia: Yes Congestive Heart Failure: No Hypertension: Yes Respiratory Problems Chronic Obstructive Pulmonary Disease (COPD): No Smoking: Yes (5 CIGARS A MONTH) Stomache/Intestinal Problems Gastroesophageal Reflux Disease: Yes Genital/Urinary Problems Renal Disease: No Head,Eye,Nose,Throat Problems Cataracts: Yes Endocrine Problems Diabetes Mellitus Type 1: No Diabetes Mellitus Type 2: Yes Other Problems Blood Transfusions: No Blood Transfusion Reaction: No Anesthesia Reactions: No Organ Transplant: Yes Subjective Visit Visit for: follow up visit and knee Immunization / Flu Flu Vaccine in the Last 12 Months: No Flu Vaccine Exclusion Criteria: No Exclusion Criteria History of Present Illness Chief complaint: LEFT KNEE PAIN Date of injury / onset of symptoms: 3 YEARS Date of 1st surgery (if applicable): 2019 R TKA Patient is a pleasant 71-year-old male with a left knee arthritis. He had a right total knee replacement done at [place] 5 years ago. He has had injections in the past as well as Advil. He uses a walker because of the pain. He reports the pain is starting to affect his quality life and happiness He also reports that he has pain shooting down both legs. Uses a walker and leans forward. He has a positive shopping cart sign Personal History Occupation: RETIRED Red flag PMH: none BMI Counceling provided: Yes Pain Pain level (0-10): 8 Pain duration: ALL DAY Pain location: groin, anterior and posterior Pain quality: sharp, dull and aching Pain timing: night, increases with activity and stairs Ambulatory data Ambulatory device: none Treatments Improvement with previous injections: No Improvement with PT: No Improvement with NSAIDS: no Review of Systems Review of Systems: All systems negative unless otherwise noted in HPI.
== END 2025-05-24 14:09 | disposition home or self-care (01) ==
LOC: HODSRG 13:44
PROVIDERS: PCP Nurse Practitioner Family; Referring Provider Nurse Practitioner Family; Supervising Provider Orthopaedic Surgery Adult Reconstructive Orthopaedic Surgery; Visit Provider Orthopaedic Surgery Adult Reconstructive Orthopaedic Surgery
DX: M17.12 Unilateral primary osteoarthritis, left knee (principal); M25.562 Pain in left knee; R20.0 Anesthesia of skin; R20.2 Paresthesia of skin; M79.605 Pain in left leg; M79.604 Pain in right leg; I10 Essential (primary) hypertension; E78.00 Pure hypercholesterolemia, unspecified; K21.9 Gastro-esophageal reflux disease without esophagitis; E11.9 Type 2 diabetes mellitus without complications; Z96.651 Presence of right artificial knee joint; F17.210 Nicotine dependence, cigarettes, uncomplicated
CPT/HCPCS: 99213; G0463

== ENCOUNTER → 2025-06-23 | Outpatient (CLI) | payer MEDICARE, SELFPAY ==
--- NOTE | 2025-06-23 12:00 | XR_ITS ---
Examination: MRI lumbar spine without contrast Date and time of exam: June 23, 2025, 1215 hours INDICATIONS: Low back pain radiating down the left leg to the heel 3 months Technique: Multiple MRI axial and sagittal sections lumbar spine. Sagittal T2-weighted images, TR 3500, TE 118 T1 weighted transverse sections, TR 688 T8.5, T2-weighted sagittal sections T1 weighted sagittal sections TR 621, TE 30 T2 axial sections, TR 4, 190, TE 84. Findings: Grade 2 spondylolisthesis L5 on S1 Diffuse advanced lumbar degenerative disc disease Moderate lumbar spondylosis L5-S1 severe spinal stenosis, secondary to the grade 2 spondylolisthesis and 13 mm central lumbar disc bulge circumferentially surrounding the thecal sac with severe bilateral L5 ganglionic compression L4-L5 2 mm central lumbar disc bulge L3-4 2 mm central lumbar disc bulge L2-3 no disc protrusion L1-L2 no disc protrusion IMPRESSION: Diffuse advanced lumbar degenerative disc disease L5-S1 severe spinal stenosis, grade 2 spondylolisthesis, 13 mm central lumbar disc bulge with severe bilateral L5 ganglionic compression
== END | disposition home or self-care (01) ==
LOC: SMRI 11:48
PROVIDERS: PCP Internal Medicine; Referring Provider Orthopaedic Surgery Adult Reconstructive Orthopaedic Surgery; Visit Provider Orthopaedic Surgery Adult Reconstructive Orthopaedic Surgery
DX: M51.360 Other intervertebral disc degeneration, lumbar region with discogenic back pain only (principal); M48.07 Spinal stenosis, lumbosacral region; M43.17 Spondylolisthesis, lumbosacral region; G95.20 Unspecified cord compression
CPT/HCPCS: 72148

== ENCOUNTER 2025-07-13 10:26 | Outpatient (AMB) | payer MEDICARE, SELFPAY ==
--- NOTE | 2025-07-13 09:52 | PD.ORTHTELE ---
Med/Allergies Allergies & Medications Allergies Penicillins Adverse Reaction (Severe, Verified 07/13/25 09:55) Vomiting Medication Reconciliation cimetidine 400 mg tablet 400 mg PO QDAY ##60 04/25/15 [History Confirmed 07/13/25] diclofenac sodium 50 mg tablet,delayed release 100 mg PO TIDWM ##0 07/01/17 [History Confirmed 07/13/25] gabapentin 300 mg capsule 300 mg PO BID #0 caps 07/01/17 [History Confirmed 07/13/25] insulin detemir U-100 100 unit/mL subcutaneous solution (Levemir U-100 Insulin) 60 unit subcut QPM #0 vials 07/01/17 [History Confirmed 07/13/25] rosuvastatin 10 mg tablet (Crestor) 10 mg PO HS #0 tabs 08/31/17 [History Confirmed 07/13/25] coenzyme Q10 100 mg capsule (CoQ-10) 300 mg PO DAILY ##0 09/01/17 [History Confirmed 07/13/25] glyburide 5 mg-metformin 500 mg tablet 1 tab PO DAILY 02/23/19 [History Confirmed 07/13/25] losartan 50 mg tablet 50 mg PO QDAY 02/23/19 [History Confirmed 07/13/25] magnesium 200 mg tablet 400 mg PO QDAY 02/23/19 [History Confirmed 07/13/25] meloxicam 15 mg tablet 15 mg PO QDAY 02/23/19 [History Confirmed 07/13/25] potassium gluconate 595 mg (99 mg) tablet 99 mg PO QDAY 02/23/19 [History Confirmed 07/13/25] Subjective Visit Visit for: follow up visit, knee and MRI (RESULTS) Immunization / Flu Flu Vaccine in the Last 12 Months: Yes Flu Vaccine Exclusion Criteria: Already Received History of Present Illness Chief complaint: MRI RESULTS atlynda is a pleasant 71-year-old male with a left knee arthritis. He had a right total knee replacement done at [place] 5 years ago. He has had injections in the past as well as Advil. He uses a walker because of the pain. He reports the pain is starting to affect his quality life and happiness He also reports that he has pain shooting down both legs. Uses a walker and leans forward. He has a positive shopping cart sign Pain Pain level (0-10): 8 Pain duration: ALL DAY Pain location: anterior Pain quality: dull and aching Pain timing: increases with activity Associated signs & symptoms: none Ambulatory data Ambulatory device: none Treatments Improvement with previous injections: No Improvement with PT: No Improvement with NSAIDS: no Review of Systems Review of Systems: All systems negative unless otherwise noted in HPI. Assessment and Plan Problem List (1) Arthritis of knee: Status: Acute Plan: Patient is a pleasant 73-year-old male with left knee pain and left knee arthritis. We discussed different treatment options. The patient would like to proceed with surgery if he has [id number] which he has been told by 5 of the surgeons that he has [id number] arthritis. He has failed conservative treatment including anti-inflammatories and multiple injections. In addition, he has bilateral leg numbness and tingling that starts around the buttocks and goes down both legs. He almost for sure of spinal stenosis. We discussed his MRI results. He has significant spinal stenosis at L5-S1 The nature and purpose of the total knee replacement, alternative method(s) of treatment, the material risks involved, and the possibility of complications were fully explained to the patient. The patient does NOT have any of the following contraindications to TKA: - Active infection of the knee joint, OR - Active systemic bacteremia, OR - Active skin infection or open wound at surgical site, OR - Neuropathic arthritis, OR - Severe, rapidly progressive neurological disease, OR - Severe medical condition that makes risks of surgery outweigh the potential benefit The patient was told the most common risks and complications associated with a total knee replacement include, but are not limited to: blood clots in the leg, fatal pulmonary embolism, dislocation of the prosthesis, intraoperative and postoperative fractures of the femur or tibia, infection, failure of the prosthesis or grafting materials, complications from anesthesia, reactions to blood transfusions, postoperative leg length inequality, instability of the knee replacement, nerve damage or injury, vascular injury, delayed wound healing, infection, other injury or even . In addition, there are risks associated with anesthesia given during this operation. Also, the patient was told that after undergoing a total knee replacement there may still be persistent pain or disability. The patient was informed that the success of this operation in part depends upon the mechanical devices which are going to be implanted and that these devices can fail or malfunction, and may need to be repaired or replaced and there are no guarantees as to the longevity of this device or its parts and that it or its parts could fail prematurely. The patient was also notified that during the course of surgery, there may be a need to use bone graft from donors, and that any bone graft used will be carefully screened for communicable diseases, including AIDS, hepatitis, Sarthak-Creutzfeldt, or other diseases, but despite the screening procedures, there is a small chance that they could contract one of these diseases. Finally, the patient was asked to follow completely and fully with all advice and recommended treatments, and that recovery and ultimate outcome are affected by their compliance with recommended treatment. We discussed the risks, benefits and treatment alternatives, and the patient is interested in proceeding with surgery. We will try to set this up as expeditiously as possible. Advanced Care Planning Discussion Advance care planning discussed with:: patient Office Procedures GNS Level of Care Nursing/Assessment Patient Status: Established Patient Nursing Assessment/Reassesment: Medication Reconciliation, Update PMH in EMR and Vital Signs Coordination of Care: Complex Care and Chronic Disease 1-5, Education Complex Pt/Fam, Consent,records obtained, informed consent, Results/Orders obtained and Staff clarify orders Established Patient Charge Established Patient Point Assignment: 95 Telehealth If patient is seen using Teleconference methods, complete New/Est section, but DO NOT andres points only andres the correct Telemed visit type Telemed Phone/Video with patient at home & Dr,PA,ASPHALT MACHINE OPERATOR: Yes
== END 2025-07-13 10:28 | disposition home or self-care (01) ==
LOC: HODSRG 10:26
PROVIDERS: PCP Internal Medicine; Referring Provider Internal Medicine; Supervising Provider Orthopaedic Surgery Adult Reconstructive Orthopaedic Surgery; Visit Provider Orthopaedic Surgery Adult Reconstructive Orthopaedic Surgery
DX: M17.12 Unilateral primary osteoarthritis, left knee (principal); M25.562 Pain in left knee; Z96.651 Presence of right artificial knee joint; M48.07 Spinal stenosis, lumbosacral region
CPT/HCPCS: 99212; G0463

== ENCOUNTER 2025-07-27 13:31 | Outpatient (AMB) | payer MEDICARE, SELFPAY ==
[2025-07-27 14:30] VITALS: BP 137/85; PULSE 92; RESP 18; TEMP 36.3; O2SAT 97; BMI 40.8
--- NOTE | 2025-07-27 14:30 | PD.ORTHCLVIS ---
Vital signs 07/27/25 14:30 Height 1.7 m Height Method Stated Weight 118.047 kg Weight Measurement Method Standing Scale BMI 40.8 BP 137/85 H Blood Pressure Source Automatic Cuff Blood Pressure Location Right Upper Arm Position Sitting Respiration 18 Pulse 92 Pulse Source Monitor Temp 97.3 F Temp Source Temporal Artery Scan Pulse Oximetry (%) 97 Oxygen Delivery Method Room Air Med/Allergies Allergies & Medications Allergies Penicillins Adverse Reaction (Severe, Verified 07/27/25 14:30) Vomiting Medication Reconciliation cimetidine 400 mg tablet 400 mg PO QDAY ##60 04/25/15 [History Confirmed 07/27/25] diclofenac sodium 50 mg tablet,delayed release 100 mg PO TIDWM ##0 07/01/17 [History Confirmed 07/27/25] gabapentin 300 mg capsule 300 mg PO BID #0 caps 07/01/17 [History Confirmed 07/27/25] insulin detemir U-100 100 unit/mL subcutaneous solution (Levemir U-100 Insulin) 60 unit subcut QPM #0 vials 07/01/17 [History Confirmed 07/27/25] rosuvastatin 10 mg tablet (Crestor) 10 mg PO HS #0 tabs 08/31/17 [History Confirmed 07/27/25] coenzyme Q10 100 mg capsule (CoQ-10) 300 mg PO DAILY ##0 09/01/17 [History Confirmed 07/27/25] glyburide 5 mg-metformin 500 mg tablet 1 tab PO DAILY 02/23/19 [History Confirmed 07/27/25] losartan 50 mg tablet 50 mg PO QDAY 02/23/19 [History Confirmed 07/27/25] magnesium 200 mg tablet 400 mg PO QDAY 02/23/19 [History Confirmed 07/27/25] meloxicam 15 mg tablet 15 mg PO QDAY 02/23/19 [History Confirmed 07/27/25] potassium gluconate 595 mg (99 mg) tablet 99 mg PO QDAY 02/23/19 [History Confirmed 07/27/25] Exam Exam Patient is in no acute distress and is cooperative with the examination today. Breathing is nonlabored. Patient has a normal mood and affect. Bilateral extremities were evaluated and demonstrates sensation intact to light touch. Palpable pedal pulses are present. No significant edema is present. Bilateral hips were examined. The patient has no pain with log roll of the hips. Internal rotation to 30 degrees and external rotation to 30 degrees is painless. Negative FADIR. Right knee was examined today. The right knee is in reasonable alignment. Range of motion from 0-120 degrees. Knee is stable to varus and valgus as well as AP translation with <5mm. Patient has a negative McMurrays. There is no pain with patellofemoral compression and no crepitus noted. The knee is nontender to palpation. Left knee was examined today. The left knee is in varus alignment. Range of motion from 0-115 degrees. Knee is stable to varus and valgus as well as AP translation with <5mm. Patient has a negative McMurrays. There is no pain with patellofemoral compression and no crepitus noted. The knee is tender to palpation medially. Xrays demonstrate significant joint space narrowing medially. There is complete obliteration of the medial joint space Assessment and Plan Problem List (1) Arthritis of knee: Status: Acute Plan: Patient is a pleasant 73-year-old male with left knee pain and left knee arthritis. We discussed different treatment options. The patient would like to proceed with surgery if he has [id number] which he has been told by 5 of the surgeons that he has [id number] arthritis. He has failed conservative treatment including anti-inflammatories and multiple injections. In addition, he has bilateral leg numbness and tingling that starts around the buttocks and goes down both legs. He almost for sure of spinal stenosis. We discussed his MRI results. He has significant spinal stenosis at L5-S1 The nature and purpose of the total knee replacement, alternative method(s) of treatment, the material risks involved, and the possibility of complications were fully explained to the patient. The patient does NOT have any of the following contraindications to TKA: - Active infection of the knee joint, OR - Active systemic bacteremia, OR - Active skin infection or open wound at surgical site, OR - Neuropathic arthritis, OR - Severe, rapidly progressive neurological disease, OR - Severe medical condition that makes risks of surgery outweigh the potential benefit The patient was told the most common risks and complications associated with a total knee replacement include, but are not limited to: blood clots in the leg, fatal pulmonary embolism, dislocation of the prosthesis, intraoperative and postoperative fractures of the femur or tibia, infection, failure of the prosthesis or grafting materials, complications from anesthesia, reactions to blood transfusions, postoperative leg length inequality, instability of the knee replacement, nerve damage or injury, vascular injury, delayed wound healing, infection, other injury or even . In addition, there are risks associated with anesthesia given during this operation. Also, the patient was told that after undergoing a total knee replacement there may still be persistent pain or disability. The patient was informed that the success of this operation in part depends upon the mechanical devices which are going to be implanted and that these devices can fail or malfunction, and may need to be repaired or replaced and there are no guarantees as to the longevity of this device or its parts and that it or its parts could fail prematurely. The patient was also notified that during the course of surgery, there may be a need to use bone graft from donors, and that any bone graft used will be carefully screened for communicable diseases, including AIDS, hepatitis, Sarthak-Creutzfeldt, or other diseases, but despite the screening procedures, there is a small chance that they could contract one of these diseases. Finally, the patient was asked to follow completely and fully with all advice and recommended treatments, and that recovery and ultimate outcome are affected by their compliance with recommended treatment. We discussed the risks, benefits and treatment alternatives, and the patient is interested in proceeding with surgery. We will try to set this up as expeditiously as possible. Advanced Care Planning Discussion Advance care planning discussed with:: patient Office Procedures GNS Level of Care Nursing/Assessment Patient Status: Established Patient Nursing Assessment/Reassesment: Medication Reconciliation, Update PMH in EMR and Vital Signs Coordination of Care: Complex Care and Chronic Disease 1-5, Education Complex Pt/Fam, Consent,records obtained, informed consent, 1 Ins Authorization, Results/Orders obtained and Staff clarify orders Established Patient Charge Established Patient Point Assignment: 110 MA Intake Visit Data Collection New Patient or Established: Established Patient (seen at [facility] within 3 years) Reason for Visit:: FOLLOW UP ON A1C Seen by Clinical Staff ONLY (RN/MA): No Verbal consent obtained for Telemed visit?: No Procurement Technician Required: No PCP or OBGYN visit in last 3 months: Yes Hx Now: No Do You Feel Safe at Home: Yes Authorities Contacted: N/A Questionairres Past Medical History Past Medical History Have you ever been diagnosed with any of the following: Neurological Problems Seizures: No Cardiology Problems Hypercholesterolemia: Yes Congestive Heart Failure: No Hypertension: Yes Respiratory Problems Chronic Obstructive Pulmonary Disease (COPD): No Smoking: Yes (5 CIGARS A MONTH) Stomache/Intestinal Problems Gastroesophageal Reflux Disease: Yes Genital/Urinary Problems Renal Disease: No Head,Eye,Nose,Throat Problems Cataracts: Yes Endocrine Problems Diabetes Mellitus Type 1: No Diabetes Mellitus Type 2: Yes Other Problems Blood Transfusions: No Blood Transfusion Reaction: No Anesthesia Reactions: No Organ Transplant: Yes Subjective Visit Visit for: follow up visit and knee Immunization / Flu Flu Vaccine in the Last 12 Months: No Flu Vaccine Exclusion Criteria: No Exclusion Criteria History of Present Illness Chief complaint: LEFT KNEE PAIN Date of injury / onset of symptoms: 3 YEARS Date of 1st surgery (if applicable): 2019 R TKA Patient is a pleasant 71-year-old male with a left knee arthritis. He had a right total knee replacement done at [place] 5 years ago. He has had injections in the past as well as Advil. He uses a walker because of the pain. He reports the pain is starting to affect his quality life and happiness. His medical clearance has been postponed. He also reports that he has pain shooting down both legs. Uses a walker and leans forward. He has a positive shopping cart sign Personal History Occupation: RETIRED Red flag PMH: BMI and none BMI Counceling provided: Yes Pain Pain level (0-10): 8 Pain duration: ALL DAY Pain location: groin, outside (lateral), anterior and posterior Pain quality: sharp, dull and aching Pain timing: night, increases with activity and stairs Ambulatory data Ambulatory device: walker and none Treatments Improvement with previous injections: No Improvement with PT: No Improvement with NSAIDS: no Review of Systems Review of Systems: All systems negative unless otherwise noted in HPI.
== END 2025-07-27 14:37 | disposition home or self-care (01) ==
LOC: HODSRG 13:31
PROVIDERS: PCP Internal Medicine; Referring Provider Internal Medicine; Supervising Provider Orthopaedic Surgery Adult Reconstructive Orthopaedic Surgery; Visit Provider Orthopaedic Surgery Adult Reconstructive Orthopaedic Surgery
DX: M17.12 Unilateral primary osteoarthritis, left knee (principal); M25.562 Pain in left knee; Z96.651 Presence of right artificial knee joint
CPT/HCPCS: 99213; G0463

== ENCOUNTER → 2025-08-02 | Outpatient (CLI) | payer MEDICARE, SELFPAY ==
[2025-08-02 15:24] LABS: Glucose Estimated Average 212 mg/dL (80-131); Hemoglobin A1C 9.0 % Hgb (4.8-6.0)
== END | disposition home or self-care (01) ==
LOC: COPL 13:43
PROVIDERS: PCP Internal Medicine; Referring Provider Orthopaedic Surgery Adult Reconstructive Orthopaedic Surgery; Visit Provider Orthopaedic Surgery Adult Reconstructive Orthopaedic Surgery
DX: E11.8 Type 2 diabetes mellitus with unspecified complications (principal)
CPT/HCPCS: 36415; 83036